=== PATIENT | female | born 2000 | race Caucasian/White ===

== ENCOUNTER 2019-07-29 15:28 | Outpatient (CLI) | payer BC, SELFPAY ==
--- NOTE | 2019-07-29 15:43 | XR_ITS ---
WS: [id number] Chest 2 views, 07/29/2019 Clinical Data: ACUTE LOWER RESPIRATORY TRACT INFECTION Comparison: None. Findings: No nodules, masses or effusions are seen. The heart is normal. The pulmonary vascularity is not increased. No pneumonia or pneumothorax is seen. XR/XR chest 2V* [id number] Impression: Negative chest.
== END 2019-07-29 15:29 | disposition home or self-care (01) ==
LOC: RADWPI 15:40
PROVIDERS: Family Provider Pediatrics Adolescent Medicine; PCP Family Medicine; Visit Provider Family Medicine
DX: J22 Unspecified acute lower respiratory infection (principal)
CPT/HCPCS: 71046

== ENCOUNTER → 2020-04-21 10:01 | Outpatient (BNVA) | payer BC, SELFPAY | PROVIDERS: Family Provider Pediatrics Adolescent Medicine; PCP Family Medicine; Visit Provider Obstetrics & Gynecology | DX: Z34.01 Encounter for supervision of normal first pregnancy, first trimester (principal) | CPT/HCPCS: 80053; 80307; 84315; 85027; 86592; 86762; 86803; 86850; 86900; 87340; 87806 ==

== ENCOUNTER → 2020-05-04 16:39 | Outpatient (BNVA) | payer BC, SELFPAY | PROVIDERS: Family Provider Pediatrics Adolescent Medicine; PCP Family Medicine; Visit Provider Obstetrics & Gynecology | DX: Z34.01 Encounter for supervision of normal first pregnancy, first trimester (principal) | CPT/HCPCS: 84315; 87491; 87591; 88175 ==

== ENCOUNTER → 2020-07-11 08:07 | Outpatient (BNVA) | payer BC, SELFPAY | PROVIDERS: Family Provider Pediatrics Adolescent Medicine; PCP Family Medicine; Visit Provider Obstetrics & Gynecology | DX: Z34.90 Encounter for supervision of normal pregnancy, unspecified, unspecified trimester (principal) | CPT/HCPCS: 76805 ==

== ENCOUNTER → 2020-08-21 12:30 | Outpatient (BNVA) | payer BC, SELFPAY | PROVIDERS: Family Provider Pediatrics Adolescent Medicine; PCP Family Medicine; Visit Provider Obstetrics & Gynecology | DX: Z34.02 Encounter for supervision of normal first pregnancy, second trimester (principal) | CPT/HCPCS: 82950; 84315; 85027 ==

== ENCOUNTER 2020-09-21 12:38 | Outpatient (CLI) | payer BC, SELFPAY ==
[2020-09-21 13:09] VITALS: BP 101/59; PULSE 105; TEMP 36.8
[2020-09-21 13:29] VITALS: BP 127/73; PULSE 110
[2020-09-21 13:30] LABS: Nitrazine Paper, PH Negative
[2020-09-21 13:49] VITALS: BP 111/62; PULSE 82
[2020-09-21 13:57] LABS: Actim Prom Negative
[2020-09-21 14:10] VITALS: BP 104/57; PULSE 89
[2020-09-21 14:29] VITALS: BP 101/56; PULSE 84
[2020-09-21 16:11] VITALS: BMI 30.8
== END 2020-09-21 14:52 | disposition home or self-care (01) ==
LOC: OPOB 12:47 → OBGYN 12:48
PROVIDERS: PCP Family Medicine; Visit Provider Obstetrics & Gynecology
DX: O26.899 Other specified pregnancy related conditions, unspecified trimester (principal); Z3A.00 Weeks of gestation of pregnancy not specified; N89.8 Other specified noninflammatory disorders of vagina
CPT/HCPCS: 83986; 84112; 99211

== ENCOUNTER → 2020-10-10 08:39 | Outpatient (BNVA) | payer BC, SELFPAY | PROVIDERS: PCP Family Medicine; Visit Provider Obstetrics & Gynecology | DX: R30.9 Painful micturition, unspecified (principal) | CPT/HCPCS: 87086 ==

== ENCOUNTER 2020-10-24 08:45 | Outpatient (CLI) | payer BC, SELFPAY | END 2020-10-24 08:46 | disposition home or self-care (01) | LOC: LAB 12-05 10:49 | PROVIDERS: PCP Family Medicine; Visit Provider Obstetrics & Gynecology | DX: Z34.03 Encounter for supervision of normal first pregnancy, third trimester (principal) | CPT/HCPCS: 84315; 87081 ==

== ENCOUNTER → 2020-11-09 09:58 | Outpatient (BNVA) | payer BC, SELFPAY | PROVIDERS: PCP Family Medicine; Visit Provider Obstetrics & Gynecology | DX: Z34.03 Encounter for supervision of normal first pregnancy, third trimester (principal) | CPT/HCPCS: 84315; 87635 ==

== ENCOUNTER 2020-11-17 20:50 | Inpatient (IN) | payer BC, SELFPAY ==
[2020-11-17] VITALS (7 sets, daily range): BP systolic 126–132; BP diastolic 79–87; PULSE 102–123; RESP 17; TEMP 36.7; BMI 34.0
[2020-11-17] MEDS: dextrose 5%-lactated ringers 1,000 ML 125 ML IV (22:39)
[2020-11-17] MEDS: oxytocin 30 UNIT/500 ML BAG IV (22:39)
[2020-11-17 22:48] LABS: Basophils % 0.3 %; Eosinophils # 0.2 10^3/uL (0.0-0.8); Eosinophils % 1.9 %; Hematocrit 36.6 % (37.0-47.0); Hemoglobin 12.3 g/dL (11.5-15.3); Lymphocytes # 1.8 10^3/uL (0.8-4.8); Lymphocytes % 16.1 %; Mean Corpuscular HGB Conc 33.6 g/dL (30.0-36.0); Mean Corpuscular Hemoglobin 29.8 pg (28.0-34.0); Mean Corpuscular Volume 88.6 fL (81-99); Mean Platelet Volume 12.7 fL (7.4-10.4); Monocytes % 8.6 %; Neutrophils # 8.04 10^3/uL (1.8-7.7); Neutrophils % 72.9 %; Nucleated Red Blood Cells % 0 %; Platelet Count 106 10^3/cmm (130-400); Red Blood Count 4.13 10^6/uL (4.1-5.3)
[2020-11-18] VITALS (75 sets, daily range): BP systolic 102–192; BP diastolic 52–100; PULSE 101–148; RESP 17; TEMP 36–37.1; O2SAT 97–98
[2020-11-18] MEDS: lactated ringers 1,000 ML 999 ML IV (00:32)
[2020-11-18] MEDS: fentaNYL 50 mcg/mL INJ 2mL IVP (00:39)
--- NOTE | 2020-11-18 01:37 | ANES.PREANE2 ---
Pre-Anesthetic Assessment Pre-Anesthetic Assessment: Height/Weight: Height 1.55 m Weight 81.647 kg Temp Pulse Resp BP 98.1 F 107 H 17 139/89 11/17/20 21:23 11/18/20 01:13 11/18/20 00:39 11/18/20 01:13 Preop Diagnosis: labor pain Proposed Procedure: epidural Familial anesthetic complications: none Was Beta Basil taken within 24 hours: N/A Was Clonidine taken within 24 hours: N/A Social: Social History: No alcohol and No tobacco Exam: Pre-Anes Outpt Exam: alert, oriented x 3, clear to auscultation bilaterally and regular rate & rhythm Airway: Submandibular: WNL Cervical ROM: WNL MP: 2 Dentition: Full Pulmonary: Pulmonary: None reported CV/HEM: CV/HEM: None reported : : None reported Hepatic: Hepatic: None reported GI: GI: GERD (tums controlled) Metabolic: Metabolic: None reported Musc/skel: Musc/skel: None reported Neuropsych: Neuropsych: None reported Anesthetic Plan: ASA status: 2 Anesthesia: Regional (specify below) Risk of > 500 ml blood loss (7ml/kg in children): No Meds/Allergies Current Medications: Current Medications Generic Name Dose Route Start Last Admin Trade Name Freq PRN Reason Stop Dose Admin Fentanyl 25 - 100 mcg 11/17/20 21:54 11/18/20 00:39 Fentanyl 50 Mcg/ Ml Inj 2ml IVP 25 mcg Q1H PRN Administration SEVERE PAIN Dextrose/Lactated Ringer's 1,000 mls @ 125 m ls/hr 11/17/20 21:54 11/17/20 22:39 Dextrose 5%-Lact ated Ringers IV 125 mls/hr .Q8H PRN Administration LABOR INDUCTION Oxytocin 30 unit in 500 ml s @ 1 mls/hr 11/17/20 21:54 11/18/20 00:10 Pitocin IV 4 milliunit/min .Q24H PRN 4 mls/hr LABOR INDUCTION Titration Protocol 1 MILLIUNIT/MIN Lactated Ringer's 1,000 mls @ 999 m ls/hr 11/18/20 00:21 11/18/20 00:32 Lactated Ringers IV 999 mls/hr .Q1H1M PRN Administration See label comment s PFSH Anesthesia PFSH: Medical History Anxiety No pertinent past medical history neghx: dm,htn,thyroid,dvt/pe, herpes---- denies partner with herpes Surgical History No pertinent past surgical history Family History Grandmother Diabetes Maternal Hypercholesteremia Maternal Hypertension Maternal Grandfather Diabetes Paternal Hypercholesteremia Maternal Hypertension Maternal and Paternal Family/Other Thyroid disease Maternal Aunt-- thyroid cancer- dxed at age 35 Social History Smoking and tobacco status: never smoked Alcohol intake: current Additional social history: - Tobacco use: Never Alcohol use: Socially, prior to Drug use: Never Female Reproductive History: : 1 Data Anesthesia CBC & Chem 7: 11/17/20 22:25 Other Labs: Laboratory Results - last 48 hr 11/17/20 22:25 WBC 11.0 H RBC 4.13 Hgb 12.3 Hct 36.6 L MCV 88.6 MCH 29.8 MCHC 33.6 RDW 13.0 Plt Count 106 L MPV 12.7 H Neut % (Auto) 72.9 Lymph % (Auto) 16.1 [place] % (Auto) 8.6 Eos % (Auto) 1.9 Baso % (Auto) 0.3 Neut # (Auto) 8.04 H Lymph # (Auto) 1.8 [place] # (Auto) 1.0 H Eos # (Auto) 0.2 Baso # (Auto) 0.0 Nucleated RBC % (auto) 0 Nucleated RBCs # 0.0 Cardiac Studies: No Data to Display
--- NOTE | 2020-11-18 02:04 | P.ANES_ITS ---
Anesthesia Procedures Procedure/Date: 11/18/20 epidural Procedure Narrative: low platelet count discussed with patient and was confirmed to be chronic in nature. patient educated on risks and chose to proceed with the epidural placement. epidural complete, bolus given, epidural pump initiated with TRAIN ELECTRONIC TECHNICIAN education given, vitals taken during procedure using OBIX system and satisfactory throughout, patient admits to decrease pain, report of procedure to OB RN Epidural: Time Out Performed: Yes Consents Signed: Procedure Consent Consent: requested by attending/covering physician, from patient, risks and benefits reviewed and patient agrees to proceed Lumbar Level: L3-L4 Epidural position: sitting Epidural procedure: sterile prep of area, 1% lidocaine to numb the area (3 mL), 18 g needle, negative for paresthesia passed, neg for paresthesia, test dose given, 1.5% xylocaine 1:200k epi (5 mL), 0.2% Ropivacaine bolus ml (5 mL), placed PCEA, no systemic response, sterile dressing applied, L.U.D. no apparent complications and 0.2% Ropiavacaine @ mls/hr (13 mL/hr)
--- NOTE | 2020-11-18 03:54 | PC.NURSE ---
Father of baby not involved in . Father is aware that patient is .
[2020-11-18] MEDS: alum-mag-hydroxide-sime 30 mL UDC PO (04:25)
--- NOTE | 2020-11-18 07:39 | P.PCNOB_ITS ---
Delivery Note: Date of delivery: November 18, 2020 Pre-delivery diagnoses: at 40-0/7 weeks gestation Post-delivery diagnoses: 1. at 40-0/7 weeks gestation - delivered 2. Viable female infant Procedure: Spontaneous vaginal delivery Op report anesthesia: Epidural Delivering Physician: Cr Wheeler MD Estimated blood loss (mL): 200 Pre-Delivery Course: Patient is a 20-year-old female, 1, para 0 with an LMP of 02/06/2020 and an EDC of 11/18/2020 based on a 7-week ultrasound, which placed her at 39-6/7 weeks gestation at the time of admission. She presented to labor and delivery at 20:50 on 11/17/2020 for induction of labor due to term . She was initially 80% effaced and 2 to 3 cm dilated. She was started on Pitocin for induction of labor. She had spontaneous rupture of membranes at 00:04 on 11/18/2020 with clear fluid present. She was 90% effaced and 4 cm dilated at the time. She became more uncomfortable and had epidural placed. By 05:22 she was 7 cm dilated and by 06:28 she was complete. heart tones were reassuring overall during the labor course. Delivery: Patient started pushing at 06:50 and delivered at 07:09 as a spontaneous vaginal delivery of an occiput anterior female infant over an intact perineum under epidural anesthesia. The right arm was delivering adjacent to the left cheek. The arm was swept out. 1 loop of nuchal cord was noted and reduced. The rest of the infant delivered atraumatically with the left shoulder anterior. The baby was placed on the mother's abdomen where it was left in the care of the waiting nurses. Clamping of the cord was delayed for approximately 1 minute. It was then clamped and then cut by a family member. Baby was spontaneously crying. Pitocin bolus was started. Placenta delivered intact by simple expression at 07:14. The cervix and vagina were inspected and noted to be intact. The labia were inspected. She had bilateral periurethral lacerations which were hemostatic and required no repair. She had a second-degree hymenal ring laceration which was repaired with 3-0 Vicryl suture. FINDINGS 1. Viable female weighing 7 lbs 4 oz (3280 g) with a length of 20-1/2 inches and Apgars of 9 at 1 minute and 9 at 5 minutes. 2. Three-vessel cord with 1 loop of nuchal cord noted. 3. Normal-appearing placenta with marginal cord insertion. Post-Delivery Status: Mother and were left to recover in satisfactory condition. A&P Assessment and plan (1) Term delivered: Status: Acute Coding Level of Care Code Acute Stitch Wheeler for Chg Fwd Diagnoses Term delivered O80
[2020-11-18] MEDS: benzocaine-menthol 78 gm Canister 1 SPRAY TOPICAL (10:24)
[2020-11-18] MEDS: docusate sodium 100 mg Capsule PO ×2 (10:25→18:06)
[2020-11-18] MEDS: lanolin oint 7 gm 1 APPLIC TOPICAL (10:26)
[2020-11-18] MEDS: ibuprofen 800 mg tablet PO ×3 (10:26→21:25)
[2020-11-18] MEDS: prenatal vitamin Capsule 1 CAP PO (10:26)
[2020-11-18 14:50] LABS: Hematocrit 32.2 % (37.0-47.0); Hemoglobin 10.7 g/dL (11.5-15.3); Mean Corpuscular HGB Conc 33.2 g/dL (30.0-36.0); Mean Corpuscular Hemoglobin 29.7 pg (28.0-34.0); Mean Corpuscular Volume 89.4 fL (81-99); Mean Platelet Volume 12.4 fL (7.4-10.4); Platelet Count 92 10^3/cmm (130-400); Red Cell Distribution Width 13.1 % (12.1-15.1); White Blood Count 12.3 10^3/uL (4.0-10.0)
[2020-11-18] MEDS: acetaminophen 325 mg Tablet 650 MG PO (22:52)
[2020-11-19] VITALS (7 sets, daily range): BP systolic 116–127; BP diastolic 60–73; PULSE 114–129; RESP 18; TEMP 36.1–36.6
[2020-11-19 06:25] LABS: Hematocrit 31.1 % (37.0-47.0); Hemoglobin 9.8 g/dL (11.5-15.3); Mean Corpuscular HGB Conc 31.5 g/dL (30.0-36.0); Mean Corpuscular Hemoglobin 29.5 pg (28.0-34.0); Mean Corpuscular Volume 93.7 fL (81-99); Mean Platelet Volume 13.1 fL (7.4-10.4); Platelet Count 69 10^3/cmm (130-400); Red Blood Count 3.32 10^6/uL (4.1-5.3); Red Cell Distribution Width 13.6 % (12.1-15.1); White Blood Count 11.1 10^3/uL (4.0-10.0)
[2020-11-19] MEDS: acetaminophen 325 mg Tablet 650 MG PO ×2 (07:34→22:36)
[2020-11-19] MEDS: ibuprofen 800 mg tablet PO ×3 (09:49→20:42)
[2020-11-19] MEDS: docusate sodium 100 mg Capsule PO (09:49)
[2020-11-19] MEDS: prenatal vitamin Capsule 1 CAP PO (09:50)
--- NOTE | 2020-11-19 10:18 | PM.PN ---
Subjective Subjective: Interval history: Patient denies problems at this time. Reports tolerating a regular diet without nausea or vomiting. Denies lightheadedness or dizziness with ambulation. Denies shortness of breath or chest pains. States bleeding has slowed. Denies problems with urination. Denies abdominal pains other than menstrual type cramping. She is breast-feeding. Vitals/I&O/Wt Last Vital Signs Temp 97.7 F 11/19/20 09:51 Pulse 120 H 11/19/20 09:51 Resp 17 11/18/20 13:30 BP 117/67 11/19/20 09:51 Pulse Ox 97 11/18/20 06:15 Weight last 48 hrs Weight 180 lb Physical Exam Const: COMMON NORMALS: no acute distress, average body habitus, alert and well nourished GENERAL APPEARANCE: well developed ORIENTATION/CONSCIOUSNESS: Yes oriented to person, Yes oriented to place and Yes oriented to time Resp: COMMON NORMALS: normal respiratory effort and clear to auscultation bilaterally AUSCULTATION: clear to auscultation bilaterally Cardio: COMMON NORMALS: regular rhythm, No gallops present (Cardio) and No rub (Cardio) RATE: tachycardic RHYTHM: regular rhythm PERIPHERAL PULSES: posterior tibial pulses present GI: COMMON NORMALS: Soft to palpation, non-tender, No hepatosplenomegaly present and no masses (Except for uterus) AUSCULTATION: Yes normoactive bowel sounds PALPATION: Yes Soft to palpation, No Guarding due to palpation present (GI), No Rigid due to palpation, Yes No hepatosplenomegaly present, No Hernia present and No Rebound tenderness present : EXTERNAL FEMALE EXAM: No Hernia present Extremity: COMMON NORMALS: no calf tenderness NARRATIVE EXTREMITY EXAM: Trace lower extremity edema bilaterally Neuro: SENSORIUM/ORIENTATION: Yes alert, Yes oriented to person, Yes oriented to place and Yes oriented to time Psych: COMMON NORMALS: normal affect MOOD & AFFECT: Yes euthymic mood Urinary Catheter Management^: Araujo Latex: Cath Placed During This Visit: yes, but has since been removed by the nurse Reason for Continuing Indwelling Catheter: Decision to DC Catheter Urinary Catheter Date of Insertion: 11/18/20 Urinary Catheter Time of Insertion: 02:25 Date Urinary Catheter Removed: 11/18/20 Time Urinary Catheter Discontinued: 06:45 Data : 11/19/20 05:30 A&P Assessment and plan (1) Term delivered: day 1, status post vaginal delivery. Patient was without complaints. Pain is controlled on oral medications. Increase activities. Continue present management from a delivery standpoint. Status: Acute (2) anemia: Predelivery H&H was 12.3 and 36.6. Due to maternal tachycardia during labor and , blood count was checked approximately 6 hours after delivery and H&H had dropped to 10.7 and 32.2. This morning, H&H was 9.8 and 31.1. Other than the tachycardia that she had had since admission to the hospital, patient is otherwise asymptomatic with the anemia. Due to the degree of blood count drop, I would recommend repeat testing this evening and possibly tomorrow morning. Discussed with patient the possibility of needing blood transfusion if she becomes symptomatic. Questions were answered. Status: Acute (3) Thrombocytopenia complicating : Patient had thrombocytopenia at her 28-week labs with a platelet count of 105,000. Platelets were normal at 145,000 at the beginning of the . At admission, platelet was 106,000. Approximately 6 hours after delivery, platelets were at 92,000 and this morning they were down to 69,000. The low platelets was originally thought to be thrombocytopenia of . However, the drop this morning is more than I would typically expect. As a result, I am recommending rechecking platelets this evening and possibly again in the morning. Possible need for further evaluation was discussed. Questions were answered. Status: Acute Attestations Medical Necessity Statement*: Patient's blood count and platelets have dropped more than expected for routine delivery. We will recheck hemogram this evening and possibly again in the morning. Coding Level of Care Code Acute Web Ui Designer for Saundra Flores Diagnoses Term delivered O80 anemia O90.81 Thrombocytopenia complicating O99.119; D69.6
[2020-11-19 16:55] LABS: Hematocrit 30.4 % (37.0-47.0); Hemoglobin 9.9 g/dL (11.5-15.3); Mean Corpuscular HGB Conc 32.6 g/dL (30.0-36.0); Mean Corpuscular Hemoglobin 29.7 pg (28.0-34.0); Mean Corpuscular Volume 91.3 fL (81-99); Mean Platelet Volume 11.9 fL (7.4-10.4); Platelet Count 84 10^3/cmm (130-400); Red Blood Count 3.33 10^6/uL (4.1-5.3); Red Cell Distribution Width 13.6 % (12.1-15.1); White Blood Count 11.1 10^3/uL (4.0-10.0)
[2020-11-20 03:36] VITALS: BP 112/65; PULSE 108
[2020-11-20 05:44] LABS: Hematocrit 29.9 % (37.0-47.0); Hemoglobin 9.7 g/dL (11.5-15.3); Mean Corpuscular HGB Conc 32.4 g/dL (30.0-36.0); Mean Corpuscular Hemoglobin 29.8 pg (28.0-34.0); Mean Platelet Volume 11.9 fL (7.4-10.4); Platelet Count 71 10^3/cmm (130-400); Red Blood Count 3.25 10^6/uL (4.1-5.3); Red Cell Distribution Width 13.3 % (12.1-15.1); White Blood Count 9.9 10^3/uL (4.0-10.0)
[2020-11-20] MEDS: docusate sodium 100 mg Capsule PO (08:19)
[2020-11-20] MEDS: ibuprofen 800 mg tablet PO (08:19)
[2020-11-20] MEDS: prenatal vitamin Capsule 1 CAP PO (08:19)
--- NOTE | 2020-11-20 08:45 | P.DS_ITS ---
Discharge Providers WOMEN'S GARMENT FITTER Date of Admission: 11/17/20 20:50 Date of Discharge: 11/20/20 Attending Provider at Admission: Cr Wheeler MD Attending Provider at Discharge: Cr Wheeler MD Primary WOMEN'S GARMENT FITTER: Cr Wheeler MD Primary Care Provider: Prasanna Self DO Diagnoses at Discharge Discharge Diagnosis (1) Term delivered: Status: Acute (2) anemia: Status: Acute (3) Thrombocytopenia complicating : Status: Acute Reason for Visit Reason for Visit: Induction Hospital Course Hospital Course Patient is a 20-year-old female 1, para 0 with an LMP of 02/06/2020 and an EDC of 11/18/2020 based on a 7-week ultrasound, which placed her at 39-6/7 weeks gestation at the time of admission. care has been uncomplicated overall. Care has been provided mainly by Dr. Cr Wheeler at [facility]. Patient had presented to L&D on 11/17/2020 at 20:50 for induction of labor due to term . She had a favorable cervix and as a result was started on Pitocin induction. She had spontaneous rupture of membranes with clear fluid at 00:04 on 11/18/2020 and progressed to complete dilation by 06:28. She had epidural placed during the labor course. heart tones were reassuring during the labor course. She started pushing at 06:50 and delivered at 07:09 as a spontaneous vaginal delivery of an occiput anterior female over an intact perineum under epidural anesthesia. Baby weighed 7 lbs 4 oz (3280 g) with a length of 20-1/2 inches and Apgars of 9 at 1 minute and 9 at 5 minutes. Mother and were both doing well following delivery. Day 1 Patient was denying any problems. She was tolerating a regular diet without n ausea or vomiting. She was ambulating without lightheadedness or dizziness. She denied shortness of breath or chest pains. She denied problems with urination. She reported her bleeding had slowed. She was afebrile. Vital signs were stable, but patient was tachycardic which she had been since admission. Because of the tachycardia she had had a CBC drawn the afternoon after delivery. Hemoglobin had dropped from 12.3-10.7. Platelets were low, but were within normal variation. They were originally 106,000 on admission and was 92,000 the afternoon of delivery. Because of the symptoms and findings, blood count was repeated on the morning of day 1. Hemoglobin had dropped another gram and was down to 9.8 and platelets were down to 69,000. Because of the tachycardia, the anemia, and the thrombocytopenia, she was kept for another day for further monitoring and repeat blood testing. Day 2 Patient reports continuing to do well. She continues to tolerate a regular diet without nausea or vomiting. She is ambulating without lightheadedness or dizziness. She denies shortness of breath or chest pains. She denies problems with urination. She reports her bleeding has continued to slow. She is breast- feeding. Physical exam: See below Plan Patient has remained mildly tachycardic. Blood count was repeated the evening of day 1 and platelets had improved to 84,000. Hemoglobin was essentially unchanged at 9.9. Blood count this morning shows an again essentially unchanged hemoglobin of 9.7 and platelets are at 71,000. This is consistent with normal physiologic variation since the delivery. Patient is currently asymptomatic other than the tachycardia. As result I feel that transfusion is unnecessary. Patient is in agreement with this. Plan is to discharge to home today. She will be sent home with oral iron in addition to vitamins. She will need a blood count checked at her 6 weeks checkup. If she is still showing thrombocytopenia, then I would recommend evaluation by hematology. She is to follow-up in the office in approximately 6 weeks for her exam. Information Peripartum Data: Infant Delivery Method: Vaginal Laceration description: Perineal - 2nd Degree Episiotomy description: None complications: other (Anemia, Thrombocytopenia) : 1: Gender: Female Disposition of : home Additional Information: Viable female infant weighing 7 lbs 4 oz (3280 g) with a length of 20-1/2 inches and Apgars of 9 at 1 minute and 9 at 5 minutes. Physical Exam Const: COMMON NORMALS: no acute distress, average body habitus, alert and well nourished GENERAL APPEARANCE: well developed ORIENTATION/CONSCIOUSNESS: Yes oriented to person, Yes oriented to place and Yes oriented to time Resp: COMMON NORMALS: normal respiratory effort and clear to auscultation bilaterally AUSCULTATION: clear to auscultation bilaterally Cardio: COMMON NORMALS: regular rate, regular rhythm, No gallops present (Cardio) and No rub (Cardio) RATE: regular rate RHYTHM: regular rhythm PERIPHERAL PULSES: posterior tibial pulses present GI: COMMON NORMALS: Soft to palpation, non-tender, No hepatosplenomegaly present and no masses (Except nontender uterus) AUSCULTATION: Yes normoactive bowel sounds PALPATION: Yes Soft to palpation, Yes No hepatosplenomegaly present and No Hernia present : EXTERNAL FEMALE EXAM: No Hernia present Extremity: COMMON NORMALS: no calf tenderness NARRATIVE EXTREMITY EXAM: Trace lower extremity edema bilaterally Neuro: SENSORIUM/ORIENTATION: Yes alert, Yes oriented to person, Yes oriented to place and Yes oriented to time Psych: COMMON NORMALS: normal affect MOOD & AFFECT: Yes euthymic mood Urinary Catheter Management^: Araujo Latex: Cath Placed During This Visit: yes, but has since been removed by the nurse Reason for Continuing Indwelling Catheter: Decision to DC Catheter Urinary Catheter Date of Insertion: 11/18/20 Urinary Catheter Time of Insertion: 02:25 Date Urinary Catheter Removed: 11/18/20 Time Urinary Catheter Discontinued: 06:45 Discharge Data Data Completed and Pending: Labs from last 24 hours 11/20/20 11/19/20 05:40 16:50 WBC 9.9 11.1 H RBC 3.25 L 3.33 L Hgb 9.7 L 9.9 L Hct 29.9 L 30.4 L MCV 92.0 91.3 MCH 29.8 29.7 MCHC 32.4 32.6 RDW 13.3 13.6 Plt Count 71 L 84 L MPV 11.9 H 11.9 H Vitals: Last Vital Signs Temp 97.9 F 11/19/20 15:05 Pulse 108 H 11/20/20 03:36 Resp 18 11/19/20 10:15 BP 112/65 11/20/20 03:36 Pulse Ox 97 11/18/20 06:15 Discharge Plan Discharge Patient Disposition: Home Condition: Stable Prescriptions: New ferrous sulfate 325 mg (65 mg iron) tablet 325 mg PO DAILY Qty: 30 RF: 1 Continued prenat.vits,jalen,ama-wtsz-pcyng Tablet 1 tab PO DAILY RF: 0 Discharge Orders: Discharge Order (Routine); Ordered 11/20/20 Ordered By: Cr Wheeler Referrals: Cr Wheeler MD [Physician] - 6 Weeks (6-week exam in my office. Needs hemogram at that visit.) Discharge Diet: Regular Discharge Activity: Limit activity as instructed Patient Instructions: , Depression (GEN), Breast Care for the Breast Feeding Mother (DC), Pre-eclampsia and Eclampsia (DC), OB Discharge Report, OB Food/Drug Interaction Guide, Opioid Safety, OB Proud Parent Packet, OB Vaginal Deliveries, OB Vaginal Deliveries - [facility] Activity Restrictions/Additional Instructions: May use lzuz-[id number] ibuprofen 200 mg, 3 tablets 4 times a day or 4 tablets 3 times a day, as needed for pain. May use [id number]-mivzgcc iron if does not want to get the prescription iron. Discharge Attestations WOMEN'S GARMENT FITTER Time Spent in Discharge Care*: less than 30 min Coding Level of Care Code Acute Museum Specialist for Chg Fwd Diagnoses Term delivered O80 anemia O90.81 Thrombocytopenia complicating O99.119; D69.6
[2020-11-20 09:37] VITALS: BP 127/71; PULSE 129; TEMP 36.3
[2020-11-20 09:40] VITALS: PULSE 120; RESP 17; O2SAT 98
== END 2020-11-20 11:23 | disposition home or self-care (01) | DRG 806 ==
PROVIDERS: Admitting Provider Obstetrics & Gynecology; PCP Family Medicine; Visit Provider Obstetrics & Gynecology
DX: O69.2XX0 Labor and delivery complicated by other cord entanglement, with compression, not applicable or unspecified (principal); O99.12 Other diseases of the blood and blood-forming organs and certain disorders involving the immune mechanism complicating childbirth; Z37.0 Single live birth; O99.344 Other mental disorders complicating childbirth; F41.9 Anxiety disorder, unspecified; O70.1 Second degree perineal laceration during delivery; D64.9 Anemia, unspecified; O99.892 Other specified diseases and conditions complicating childbirth; D69.6 Thrombocytopenia, unspecified; R00.0 Tachycardia, unspecified; Z3A.40 40 weeks gestation of pregnancy; O90.81 Anemia of the puerperium; O75.89 Other specified complications of labor and delivery; K59.00 Constipation, unspecified
CPT/HCPCS: 36415; 51702; 59025; 59409; 85025; 85027; 96374; 99211; J2795; J3010

== ENCOUNTER → 2020-12-29 14:47 | Outpatient (BNVA) | payer BC, SELFPAY | PROVIDERS: PCP Family Medicine; Visit Provider Nurse Practitioner Women's Health | DX: D69.6 Thrombocytopenia, unspecified (principal); O90.81 Anemia of the puerperium; O99.119 Other diseases of the blood and blood-forming organs and certain disorders involving the immune mechanism complicating pregnancy, unspecified trimester | CPT/HCPCS: 85027 ==

== ENCOUNTER → 2021-01-10 13:10 | Outpatient (BNVA) | payer BC, SELFPAY | PROVIDERS: PCP Family Medicine; Visit Provider Nurse Practitioner Women's Health | DX: Z30.014 Encounter for initial prescription of intrauterine contraceptive device (principal); N99.71 Accidental puncture and laceration of a genitourinary system organ or structure during a genitourinary system procedure; Z53.8 Procedure and treatment not carried out for other reasons | CPT/HCPCS: 81025 ==

== ENCOUNTER → 2021-08-14 16:15 | Outpatient (BNVA) | payer BC, SELFPAY | PROVIDERS: PCP Family Medicine; Visit Provider Nurse Practitioner Women's Health | DX: N92.6 Irregular menstruation, unspecified (principal); Z30.9 Encounter for contraceptive management, unspecified; D69.6 Thrombocytopenia, unspecified; Z30.41 Encounter for surveillance of contraceptive pills; N92.0 Excessive and frequent menstruation with regular cycle | CPT/HCPCS: 81025; 84443; 85025; 87491; 87591; 87661 ==

== ENCOUNTER → 2021-09-12 15:31 | Outpatient (BNVA) | payer BC, SELFPAY | PROVIDERS: PCP Family Medicine; Visit Provider Nurse Practitioner Women's Health | DX: N93.9 Abnormal uterine and vaginal bleeding, unspecified (principal) | CPT/HCPCS: 76830 ==

== ENCOUNTER 2021-10-25 15:57 | Outpatient (CLI) | payer BC, SELFPAY ==
--- NOTE | 2021-10-25 16:00 | MR_ITS ---
WS: [id number] MRI PELVIS without CONTRAST. 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 Multiplanar, multisequence imaging is performed without contrast. Uterus is normal size measuring 7.4 cm in length by 4.2 cm anterior posterior and 6.1 transverse. [place] maria fernanda is mildly retroverted. Normal appearance of the myometrium. No mass or fibroid. There is no evide nce for bicornuate uterus. The endometrium measures 8 mm. Thin uniform appearance of the endometrium without a focal nodule. No contrast was given for this examination. Both ovaries are identified and contain small follicles. No dilatation of the fallopian tubes. No pamela e fluid in the cul-de-sac. No adenopathy. The visualized portions of the soft tissue and osseous stru ctures are normal. MR/MR pelvis wo con* [id number] IMPRESSION: 1. Mildly retroverted uterus. Normal uterus. No bicornuate uterus. 2. Normal size ovary with small follicles. 3. Normal endometrium on this unenhanced study.
== END 2021-10-25 15:58 | disposition home or self-care (01) ==
PROVIDERS: PCP Family Medicine; Visit Provider Nurse Practitioner Women's Health
DX: Q51.9 Congenital malformation of uterus and cervix, unspecified (principal); N85.4 Malposition of uterus
CPT/HCPCS: 72195

== ENCOUNTER → 2021-10-29 17:30 | Outpatient (BNVA) | payer BC, SELFPAY | PROVIDERS: PCP Family Medicine; Visit Provider Clinical Nurse Specialist Adult Health | DX: J02.9 Acute pharyngitis, unspecified (principal) | CPT/HCPCS: 87880 ==

== ENCOUNTER → 2022-04-16 13:33 | Outpatient (BNVA) | payer BC, SELFPAY | PROVIDERS: PCP Family Medicine; Visit Provider Clinical Nurse Specialist Adult Health | DX: Z32.02 Encounter for pregnancy test, result negative (principal) | CPT/HCPCS: 81025; 84702 ==

== ENCOUNTER → 2023-12-19 08:59 | Outpatient (BNVA) | payer BC, OTHER, SELFPAY | PROVIDERS: PCP Family Medicine; Visit Provider Clinical Nurse Specialist Adult Health | DX: D69.3 Immune thrombocytopenic purpura; E03.9 Hypothyroidism, unspecified | CPT/HCPCS: 80053; 84439; 84443; 85025; 86376 ==

== ENCOUNTER → 2025-06-20 12:07 | Outpatient (BNVA) | payer BC, SELFPAY | PROVIDERS: PCP Family Medicine; Visit Provider Family Medicine | DX: R09.81 Nasal congestion (principal) | CPT/HCPCS: 87400; 87426 ==